=== PATIENT | male | born 1995 | race Caucasian/White ===

== ENCOUNTER 2018-12-21 14:48 | Emergency (ER) | payer BC ==
[~2018-12-21] VITALS: Ht 15.2 cm; Wt 72.0 kg
[2018-12-21 14:55] VITALS: BP 132/70
--- NOTE | 2018-12-21 15:05 | PHYS DOC ---
Adult General Chief Complaint Chief Complaint: FLU SYMPTOM HPI HPI 23-year-old male presents with headache, cough, body aches and general fatigue for the last 3 days. Feels like the symptoms are getting worse so he decided to come to the ER. Patient is eating and drinking normally. He has not measured a fever but has had hot and cold spells. He works outside. He has no known sick contacts. Review of Systems Review of Systems Constitutional: Denies fever or chills [] Eyes: Denies change in visual acuity, redness, or eye pain [] HENT: Nnasal congestion [] Respiratory: Cough without shortness of breath [] Cardiovascular: No additional information not addressed in HPI [] GI: Denies abdominal pain, nausea, vomiting, bloody stools or diarrhea [] : Denies dysuria or hematuria [] Musculoskeletal: Denies back pain or joint pain. Body aches. [] Integument: Denies rash or skin lesions [] Neurologic: Denies headache, focal weakness or sensory changes [] Endocrine: Denies polyuria or polydipsia [] All other systems were reviewed and found to be within normal limits, except as documented in this note. Physical Exam Physical Exam Constitutional: Well developed, well nourished, no acute distress, non-toxic appearance. [] HENT: Normocephalic, atraumatic, bilateral external ears normal, oropharynx moist, no oral exudates, nose normal. [] Eyes: PERRLA, EOMI, conjunctiva normal, no discharge. [] Neck: Normal range of motion, no tenderness, supple, no stridor. [] Cardiovascular:Heart rate regular rhythm, no murmur [] Lungs & Thorax: Bilateral breath sounds clear to auscultation [] Abdomen: Bowel sounds normal, soft, no tenderness, no masses, no pulsatile masses. [] Skin: Warm, dry, no erythema, no rash. [] Back: No tenderness, no CVA tenderness. [] Extremities: No tenderness, no cyanosis, no clubbing, ROM intact, no edema. [] Neurologic: Alert and oriented X 3, normal motor function, normal sensory function, no focal deficits noted. [] Psychologic: Affect normal, judgement normal, mood normal. [] EKG EKG [] Radiology/Procedures Radiology/Procedures [] Course & Med Decision Making Course & Med Decision Making Pertinent Labs and Imaging studies reviewed. (See chart for details) Patient's rapid influenza is negative. This is likely another viral illness. I have advised supportive care. He is stable for discharge at this time. [] Dragon Disclaimer Dragon Disclaimer This electronic medical record was generated, in whole or in part, using a voice recognition dictation system. Departure Departure: Impression: Primary Impression: Viral upper respiratory tract infection with cough Disposition: HOME, SELF-CARE Condition: STABLE Patient Instructions: Upper Respiratory Infection, Adult, [id number] SANDY CAT DO Dec 21, 2018 15:05
[2018-12-21 15:49] LABS: INFLUENZA A PATIENT NEGATIVE (NEGATIVE); INFLUENZA B PATIENT NEGATIVE (NEGATIVE)
== END 2018-12-21 15:58 | disposition home or self-care (01) ==
LOC: ER 14:48
DX: J06.9 Acute upper respiratory infection, unspecified (principal); B97.89 Other viral agents as the cause of diseases classified elsewhere
CPT/HCPCS: 87804; 99283

== ENCOUNTER 2018-12-22 23:25 | Emergency (ER) | payer BC ==
[~2018-12-22] VITALS: Ht 182.9 cm; Wt 74.8 kg
[2018-12-22 23:25] VITALS: BP 126/73
[2018-12-23] MEDS ORDERED: predniSONE 20 MG TABLET PO ONE
[2018-12-23] MEDS ORDERED: AZIT500T PO
--- NOTE | 2018-12-23 00:03 | PHYS DOC ---
Adult General Chief Complaint Chief Complaint sore throat HPI HPI Very pleasant 23 years old male presented to the ER with sore throats he was seen and evaluated yesterday had a flu test as reported negative patient also had slept yesterday done in ER negative he noticed that white spots on the left side of his tonsil low-grade temperature dry cough Review of Systems Review of Systems Constitutional: Denies fever or chills [] Eyes: Denies change in visual acuity, redness, or eye pain [] HENT: + nasal congestion or sore throat [] Respiratory: Denies cough or shortness of breath [] Cardiovascular: No additional information not addressed in HPI [] GI: Denies abdominal pain, nausea, vomiting, bloody stools or diarrhea [] : Denies dysuria or hematuria [] Musculoskeletal: Denies back pain or joint pain [] Integument: Denies rash or skin lesions [] Neurologic: Denies headache, focal weakness or sensory changes [] Endocrine: Denies polyuria or polydipsia [] All other systems were reviewed and found to be within normal limits, except as documented in this note. Current Medications Current Medications Current Medications Medications (Trade) Dose Ordered Sig/Shyla Start Time Stop Time Status Last Admin Dose Admin Prednisone (Prednisone) 60 mg 1X ONCE 12/23/18 00:00 12/23/18 00:01 UNV Allergies Allergies Allergies Coded Allergies Type Severity Reaction Last Updated Verified Sulfa (Sulfonamide Antibiotics) Allergy Unknown 12/21/18 Yes Physical Exam Physical Exam Constitutional: Well developed, well nourished, no acute distress, non-toxic appearance. [] HENT: Normocephalic, atraumatic, bilateral external ears normal, oropharynx red , no oral exudates, nose normal. [] Eyes: PERRLA, EOMI, conjunctiva normal, no discharge. [] Neck: Normal range of motion, no tenderness, supple, no stridor. [] Cardiovascular:Heart rate regular rhythm, no murmur [] Lungs & Thorax: Bilateral breath sounds clear to auscultation [] Abdomen: Bowel sounds normal, soft, no tenderness, no masses, no pulsatile masses. [] Skin: Warm, dry, no erythema, no rash. [] Back: No tenderness, no CVA tenderness. [] Extremities: No tenderness, no cyanosis, no clubbing, ROM intact, no edema. [] Neurologic: Alert and oriented X 3, normal motor function, normal sensory function, no focal deficits noted. [] Psychologic: Affect normal, judgement normal, mood normal. [] Current Patient Data Vital Signs Vital Signs Date Time Temp Pulse Resp B/P (MAP) Pulse Ox O2 Delivery O2 Flow Rate FiO2 12/22/18 23:25 98.4 85 18 99 Lab Results Laboratory Tests Test 12/22/18 23:30 Group A Streptococcus Rapid Negative (NEGATIVE) EKG EKG [] Radiology/Procedures Radiology/Procedures [] Course & Med Decision Making Course & Med Decision Making Pertinent Labs and Imaging studies reviewed. (See chart for details) [] Final Impression Final Impression [] Problems: (1) Pharyngitis Qualifiers: Qualified Codes: J02.9 - Acute pharyngitis, unspecified Dragon Disclaimer Dragon Disclaimer This electronic medical record was generated, in whole or in part, using a voice recognition dictation system. PARISH ARCHER MD Dec 23, 2018 00:03
[2018-12-23] MEDS ORDERED: predniSONE 20 MG TABLET ONE (00:08)
== END 2018-12-23 00:15 | disposition home or self-care (01) ==
LOC: ER 23:25
DX: J02.9 Acute pharyngitis, unspecified (principal); Z88.2 Allergy status to sulfonamides
CPT/HCPCS: 87070; 87880; 99283; J7512

== ENCOUNTER 2019-08-13 14:22 | Emergency (ER) | payer SELFPAY ==
[~2019-08-13] VITALS: Ht 198.1 cm; Wt 72.0 kg
[~2019-08-13 14:22] MED LIST: AZIT500T PO
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
[2019-08-13 15:47] VITALS: BP 106/69
== END 2019-08-13 15:47 | disposition home or self-care (01) ==
LOC: ER 14:22
DX: S13.4XXA Sprain of ligaments of cervical spine, initial encounter (principal); M54.6 Pain in thoracic spine; V89.2XXA Person injured in unspecified motor-vehicle accident, traffic, initial encounter; Y93.I9 Activity, other involving external motion; Y92.488 Other paved roadways as the place of occurrence of the external cause; Y99.8 Other external cause status
CPT/HCPCS: 72040; 72072; 99284